=== PATIENT | male | born 1940 | race Caucasian/White ===

== ENCOUNTER 2019-11-22 10:34 | Day surgery (SDC) | payer MEDICARE ==
[2019-11-19 13:27] VITALS: BMI 31.1
[~2019-11-22 10:34] MED LIST: ALPRAZolam 0.25 MG TAB PO PRN; ALPRAZolam 0.5 MG TAB PO PRN; ASPIRIN 325 MG TAB PO ONE; ATORVASTATIN 80 MG TAB PO ONE; NITROGLYCERIN SL TABS 0.4 MG TAB SUBLINGUAL PRN; SODIUM CHLORIDE 0.9% 1,000 ML in EMPTY BAG 1 BAG IV ONE
[2019-11-22] MEDS ORDERED: LIDOCAINE 1% INJ 10MG/ML (20 ML MDV) ONE (11:19)
[2019-11-22 11:27] LABS: Calcium 9.3 mg/dL (8.4-10.2); Potassium 4.5 mmol/L (3.5-5.1)
[2019-11-22] MEDS ORDERED: fentaNYL (PF) 50 MCG/ML 2 ML AMP ONE (11:27)
[2019-11-22] MEDS ORDERED: MIDAZOLAM 2 MG/2 ML VIAL IVP ONE (11:41)
[2019-11-22] MEDS ORDERED: LIDOCAINE 1% INJ 10MG/ML (20 ML MDV) SQ ONE (11:41)
[2019-11-22] MEDS ORDERED: fentaNYL (PF) 50 MCG/ML 2 ML AMP IVP ONE (11:41)
[2019-11-22] MEDS ORDERED: IOPAMIDOL-370 125ML BTL INJ ONE (12:29)
[2019-11-22] MEDS ORDERED: RX INFO: IV CONTRAST WAS GIVEN 1 EACH MISC MISCELLANE PRN (12:31)
[2019-11-22] MEDS ORDERED: SODIUM CHLORIDE 0.9% 1,000 ML IV SCH (12:45)
[2019-11-22 13:11] VITALS: RESP 18
[2019-11-22 15:59] VITALS: BP 144/70; TEMP 97.9
[2019-11-22 16:50] VITALS: PULSE 51
--- NOTE | 2019-11-25 08:09 | P.CARDCATH ---
Date of Procedure: 11/22/19 Preoperative Diagnosis: This is a 79-year-old gentleman with history of ischemic heart disease with a previous bypass surgery done several years ago with the LEUNG graft to the LAD, vein graft to the diagonal and main come to the OM branch. Recently patient was complaining of exertional shortness of breath and had a nuclear stress test done in [place]. This was reported as showing anterolateral and inferolateral reversible ischemia and also fixated defects. Because of multiple defects and ongoing symptoms, patient was advised to have a cardiac catheterization. Patient preferred to come to [facility] for cardiac catheterization. Patient is fully aware of the risks and benefits of the procedure. Postoperative Diagnosis: Triple-vessel disease with a patent grafts to the LEUNG to the diagonal and also OM branch and significant lesion involving the right coronary artery at multiple sites Description of Procedure: HISTORY: This is a 79-year-old gentleman with history of previous bypass surgery and positive stress test and symptoms of shortness of breath, Being evaluated for progression of ischemic heart disease. CONSENT:I have discussed the risks, benefits and alternative therapies for the above-mentioned procedure and for both sedation/analgesia as well as necessary blood product administration, if indicated, as they pertain to this patient. The patient has indicated understanding and acceptance of the risks and procedures discussed. PROCEDURE: Patient was brought to the lab in a fasting state. Patient was given some IV sedation. The right groin is infiltrated with lidocaine and right femoral artery was entered using Seldinger technique. A 6-British catheter was left in place and selective coronary arteriography and selective injection of the LEUNG graft to the LAD, vein graft to the diagonal and also vein graft to the circumflex was performed. Patient tolerated the procedure well. Femoral angiogram was performed and Angio-Seal was applied for hemostasis. No immediate complications were noted and patient was transferred to [facility] in a stable condition Conscious Sedation: Versed 0.5mg Fentanyl 25 g Duration 25minutes HEMODYNAMICS: The aortic pressure is about 140/70. SELECTIVE CORONARY ARTERIOGRAPHY: LEFT MAIN: The left main coronary artery is relatively short but free of any occlusive disease THE LEFT ANTERIOR DESCENDING CORONARY ARTERY:. This is a moderate caliber vessel which is totally closed after first septal branch THE LEFT CIRCUMFLEX AND IS CORONARY ARTERY:. This is a good caliber vessel with total occlusion of the first OM branch. Diffuse disease involving the midportion with competent to flow noted to the distal branch from the bypass graft THE RIGHT CORONARY ARTERY: This is a good caliber vessel and dominant. This has multiple lesion involving the mid and distal portions with areas of 70% stenosis involving mid distal and also before bifurcation to PDA and PLV. The vessel is calcified. The PDA branch appears to be totally occluded. The RCA provides collaterals to the distal circumflex. THE LEUNG GRAFT TO THE LAD: This is a relatively moderate caliber vessel and patent throat its length and also to distal anastomosis. The LAD beyond the insertion appears to be small to moderate in size and free of occlusive disease. The vein graft to the DIAGONAL: This is patent at the proximal and distal anastomosis with mild disease in the body. The diagonal branch is free of occlusive disease. The vein graft to the OM branch: This is a good caliber vessel and free of occlusive disease and patent at the proximal and distal anastomosis. The distal circumflex appears to be free of occlusive disease LEFT VENTRICULOGRAPHY:. Not performed FINAL IMPRESSION: Multiple significant lesion in the RCA which is a calcified vessel. The [place] LAD is totally occluded and the first OM branch is totally occluded. The LEUNG graft to the LAD and vein graft to the diagonal and OM branch are patent PLAN: Stent placement of the RCA. Films reviewed by Dr. TIMMY Gregory. Patient may need atherectomy and this procedure is going be done at a later date as an outpatient PROGNOSIS:. Fair
== END 2019-11-22 17:57 ==
LOC: CATHCVL 10:34 → 1SOBS 12:48 → CATHCVL 17:57
PROVIDERS: ATTEND Internal Medicine Cardiovascular Disease
DX: I25.10 Atherosclerotic heart disease of native coronary artery without angina pectoris (principal); I25.810 Atherosclerosis of coronary artery bypass graft(s) without angina pectoris; I25.84 Coronary atherosclerosis due to calcified coronary lesion; I25.82 Chronic total occlusion of coronary artery; I48.0 Paroxysmal atrial fibrillation; I10 Essential (primary) hypertension; E78.5 Hyperlipidemia, unspecified; J44.9 Chronic obstructive pulmonary disease, unspecified; R09.89 Other specified symptoms and signs involving the circulatory and respiratory systems; Z82.49 Family history of ischemic heart disease and other diseases of the circulatory system; Z95.1 Presence of aortocoronary bypass graft; Z87.891 Personal history of nicotine dependence; Z79.01 Long term (current) use of anticoagulants; Z79.899 Other long term (current) drug therapy
CPT/HCPCS: 93459; 80048; C1769 ×3; C1760; C1894; J2250; J2001; J3010; Q9967; 93458

== ENCOUNTER → 2019-11-25 | Outpatient (CLI) | payer MEDICARE ==
[2019-11-25 11:16] LABS: HCT 51.3 % (39.0-53.0); HGB 16.7 gm/dL (13.0-17.5); MCH 30.4 pg (25.0-35.0); MCHC 32.6 g/dL (31.0-37.0); MCV 93.4 fL (80.0-100.0); Mean Platelet Volume 8.2; Platelet Count 197 k/uL (150-450); RBC 5.49 m/uL (4.30-5.90); WBC 8.4 k/uL (3.8-10.6)
== END | disposition home or self-care (01) ==
LOC: LABPAT 09:55
PROVIDERS: ATTEND Internal Medicine Interventional Cardiology
DX: Z01.818 Encounter for other preprocedural examination (principal); I48.0 Paroxysmal atrial fibrillation; R94.39 Abnormal result of other cardiovascular function study
CPT/HCPCS: 36415; 80051; 82565; 82947; 84520; 85027

== ENCOUNTER 2019-11-27 06:37 | Day surgery (SDC) | payer MEDICARE ==
[2019-11-26 08:42] VITALS: BMI 30.7
[2019-11-27] MEDS ORDERED: ALPRAZolam 0.25 MG TAB PO PRN (06:42)
[2019-11-27] MEDS ORDERED: ALPRAZolam 0.5 MG TAB PO PRN (06:42)
[2019-11-27] MEDS ORDERED: ASPIRIN 325 MG TAB PO STA (06:42)
[2019-11-27] MEDS ORDERED: ATORVASTATIN 80 MG TAB PO STA (06:42)
[2019-11-27] MEDS ORDERED: NITROGLYCERIN SL TABS 0.4 MG TAB SUBLINGUAL PRN (06:42)
[2019-11-27] MEDS ORDERED: SODIUM CHLORIDE 0.9% 1,000 ML in EMPTY BAG 1 BAG IV ONE (06:42)
[2019-11-27] MEDS ORDERED: SODIUM CHLORIDE 0.9% 1,000 ML IV ONE (07:08)
[2019-11-27] MEDS ORDERED: LIDOCAINE 1% INJ 10MG/ML (20 ML MDV) ONE ×2 (07:21→07:34)
[2019-11-27] MEDS ORDERED: HEPARIN SODIUM 1,000 UN/ML (10ML VL) ONE (07:34)
[2019-11-27] MEDS ORDERED: MIDAZOLAM 2 MG/2 ML VIAL IV ONE (07:44)
[2019-11-27] MEDS ORDERED: LIDOCAINE 1% INJ 10MG/ML (20 ML MDV) SQ ONE (07:44)
[2019-11-27] MEDS ORDERED: HYDROmorphone 1 MG/ML 1 ML SYRINGE ONE (07:51)
[2019-11-27] MEDS: HYDROmorphone 1 MG/ML 1 ML SYRINGE IVP ONE ×2 (07:53→09:06)
[2019-11-27] MEDS ORDERED: BIVALIRUDIN BOLUS 250 MG/50 ML IV ONE (08:00)
[2019-11-27] MEDS ORDERED: BIVALIRUDIN 250 MG in SODIUM CHLORIDE 0.9% 50 ML IV ONE ×2 (08:00→08:52)
[2019-11-27] MEDS ORDERED: IOPAMIDOL-370 100ML BTL INJ ONE ×2 (08:52→09:01)
[2019-11-27] MEDS ORDERED: NITROGLYCERIN 1000MCG/10ML SYRINGE INTRACORON ONE (08:58)
[2019-11-27] MEDS ORDERED: TICAGRELOR 90 MG TAB ONE (09:02)
[2019-11-27] MEDS ORDERED: TICAGRELOR 90 MG TAB PO ONE (09:06)
[2019-11-27] MEDS ORDERED: RX INFO: IV CONTRAST WAS GIVEN 1 EACH MISC MISCELLANE PRN (09:18)
[2019-11-27] MEDS ORDERED: MAG HYDROX/AL HYDROX/SIMETH 30 ML CUP PO PRN (09:18)
[2019-11-27] MEDS ORDERED: ATROPINE SULFATE 0.1 MG/ML 10ML SYRINGE IV PRN (09:18)
--- NOTE | 2019-11-27 13:01 | PTCA ---
PERCUTANEOUSTRANS CORORONARY ANGIOGRAPHY DATE OF SERVICE: 11/27/2019 PROCEDURE: 1. Transvenous temporary pacemaker from right femoral venous approach. 2. Orbital atherectomy of proximal and mid right coronary artery. 3. PTCA and stenting of proximal mid and distal right coronary artery with drug- eluting stents. PERFORMED BY: Dr. Alice Gregory. Moderate conscious sedation time was 88 minutes. The patient was administered Versed and Dilaudid. Oxygen saturation, hemodynamics and EKG were monitored closely. CLINICAL INFORMATION: Mr. Dinesh Campbell is an 79-year-old gentleman with a history of hypertension, hyperlipidemia, CAD who underwent aortocoronary bypass surgery in 1995 at [facility]. He had a LEUNG to LAD, vein graft to the diagonal and a vein graft to the obtuse marginal branch of circumflex. Because of significant symptoms of angina and a positive stress test, Dr. Nice evaluated him and performed a cardiac cath last week, which revealed that the vein graft and LEUNG were patent but the distal circumflex was totally occluded and the RCA that was never grafted had multiple areas of disease with heavy calcification and stenosis of about 80% to 90%. The right coronary artery was a dominant vessel, also provided collaterals to the distal circumflex. He was advised intervention after due discussion regarding risks, benefits, options and brought in for the procedure electively. PROCEDURE NOTE: Under local anesthesia and strict aseptic precautions, a 6-Spanish introducer was placed in the right femoral artery and right femoral vein. Under fluoroscopic guidance, a transvenous balloon tipped pacemaker was positioned in the right ventricular apex and the pacemaker thresholds were checked. Threshold was 0.8 mV. Pacemaker was set at a backup rate of 40 with a mA of 5.0. I then used a standard right Sarah catheter to cannulate the right coronary artery and a run-through wire was used to cross the lesion. Wire was kept in the distal aspect of the PLV branch. Patient's PDA was totally occluded and appeared to be a chronic occlusion. I then used an orbital atherectomy CSI catheter, with this I performed 2 passes in the proximal lesion and 3 passes in the mid lesion. The distal lesion just at the bifurcation did not have any atherectomy performed. Following this, I took an angiogram and noted that there was modest improvement. I then went ahead with a noncompliant 12 mm long NC Trek balloon with this I pre-dilated the mid and proximal lesions. I then deployed a 23 mm long 3.5 caliber Xience stent in the mid RCA lesion which was a long lesion at extreme tortuosity and calcification. Excellent angiographic result was achieved. I then deployed a 2.5, 12 mm Xience stent in the distal RCA into the PLV branch. Excellent angiographic result was achieved. Patient had mild chest discomfort. No significant EKG changes. The third stent was an 8 mm long 3.5 caliber Xience stent deployed in the proximal RCA lesion. Excellent angiographic result without complication was achieved. Patient received Angiomax bolus and infusion and he also received Brilinta 180 mg orally. The temporary pacemaker was taken out under fluoroscopic guidance. This was not used. I then took out the arterial sheath and used a Perclose device to secure hemostasis. The venous sheath was also pulled and manual compression used. Mild oozing was noted. A FemoStop was applied and he was sent to the room in stable condition. Excellent angiographic result without complication was achieved. Results were discussed with the patient and family. MMODL / IJN: [id number] /
[2019-11-27] MEDS ORDERED: amLODIPine 5 MG TAB PO STA (15:33)
[2019-11-27] MEDS: SODIUM CHLORIDE 0.9% 1,000 ML IV SCH ×2 (15:34→20:39)
[2019-11-27] MEDS ORDERED: MORPHINE SULFATE 2 MG/ML SYRINGE IVP STA (19:11)
[2019-11-27] MEDS ORDERED: FUROSEMIDE 10 MG/ML 2 ML VIAL IV STA (19:11)
[2019-11-27] MEDS ORDERED: LISINOPRIL 10 MG TAB PO SCH (21:00)
[2019-11-27] MEDS ORDERED: METOPROLOL SUCCINATE (ER) 25 MG TAB.ER.24H PO SCH (21:00)
[2019-11-28 06:53] LABS: Basophils % (A) 0 %; Eosinophils # (A) 0.4 k/uL (0-0.7); Eosinophils % (A) 4 %; HCT 46.9 % (39.0-53.0); HGB 15.5 gm/dL (13.0-17.5); Lymphocytes # (A) 2.2 k/uL (1.0-4.8); Lymphocytes % (A) 24 %; MCH 30.3 pg (25.0-35.0); MCHC 33.1 g/dL (31.0-37.0); MCV 91.4 fL (80.0-100.0); Mean Platelet Volume 7.8; Monocytes # (A) 0.7 k/uL (0-1.0); Monocytes % (A) 7 %; Neutrophils # (A) 5.6 k/uL (1.3-7.7); Neutrophils % (A) 62 %; Platelet Count 187 k/uL (150-450); RBC 5.13 m/uL (4.30-5.90); RDW 12.8 % (11.5-15.5)
[2019-11-28 07:05] LABS: Magnesium 2.1 mg/dL (1.6-2.3); Potassium 4.2 mmol/L (3.5-5.1)
--- NOTE | 2019-11-28 08:29 | DS ---
DISCHARGE SUMMARY DATE OF ADMISSION: 11/27/2019 DATE OF DISCHARGE: 11/28/2019. DIAGNOSES: 1. Unstable angina with history of prior aortocoronary bypass surgery. 2. Hypertension. 3. Hypercholesterolemia. PROCEDURES PERFORMED: Temporary transvenous pacemaker, orbital atherectomy and stenting of dominant calcified RCA with 3 drug-eluting stents. Mr. Campbell was brought in for elective PCI. Procedure was performed uneventfully with an excellent result. Postprocedure, he had an episode of shortness of breath and a short run of nonsustained ventricular tachycardia, asymptomatic. Labs are unremarkable. EKG is unremarkable. He is asymptomatic ambulating. Blood pressure is 110/70, pulse rate is about 58 per minute. No JVD. S1, S2 heard normally. Short systolic murmur noted. Lungs are clear. Abdomen is soft. Lower extremities reveal normal pulses. Right groin is clean and dry with a good pulse. Laboratory data and EKG reviewed. I explained to the patient the importance of compliance with dual antiplatelet therapy and his other medications. Prescriptions were given. Appointment will be with Dr. Nice on December 02 at 10:15 a.m. Discharge instructions regarding activity, diet and medications were given. The patient will be discharged today. MMODL / IJN: [id number] /
[2019-11-28] MEDS ORDERED: ATORVASTATIN 40 MG TAB PO SCH (09:00)
[2019-11-28] MEDS ORDERED: TICAGRELOR 90 MG TAB PO SCH (09:00)
[2019-11-28] MEDS ORDERED: ASPIRIN 81 MG PO SCH (09:00)
[2019-11-28 09:55] VITALS: BP 129/60; PULSE 52; RESP 16; TEMP 97.6
== END 2019-11-28 12:25 | disposition home or self-care (01) ==
LOC: CATHCVL 06:37 → 3SCARD 09:05 → CATHCVL 11-28 12:25
PROVIDERS: ATTEND Internal Medicine Interventional Cardiology
DX: I25.110 Atherosclerotic heart disease of native coronary artery with unstable angina pectoris (principal); I48.0 Paroxysmal atrial fibrillation; I10 Essential (primary) hypertension; E78.00 Pure hypercholesterolemia, unspecified; E78.5 Hyperlipidemia, unspecified; F17.210 Nicotine dependence, cigarettes, uncomplicated; Z95.1 Presence of aortocoronary bypass graft; Z79.01 Long term (current) use of anticoagulants; Z79.899 Other long term (current) drug therapy
CPT/HCPCS: 80048; 83735; 85025; C9602; C1769 ×5; C1887; C1725; C1894; C1714; C1760; C1874; J2250; J1940; J2001; J2270; J1170; J0583; Q9967

== ENCOUNTER 2023-12-18 13:05 | Emergency (ER) | payer MEDICARE ==
--- NOTE | 2023-12-18 13:31 | ED ---
Dizziness HPI - General Source: patient, family, RN notes reviewed Mode of arrival: wheelchair Limitations: no limitations <Ligia Hansen - Last Filed: 12/18/23 13:30> <Tarik Ramyond - Last Filed: 12/18/23 18:05> - General Chief Complaint: Dizziness Stated Complaint: dizziness Time Seen by Provider: 12/18/23 13:31 - History of Present Illness Initial Comments: Quick note: Patient is an 83-year-old male presented to the ER with a chief complaint of dizziness x 3 days. He also states he feels pain in bilateral eyes. He states his left eye does occasionally go blurry. Denies any other complaints. (Ligia Hansen) 83-year-old male presenting with dizziness which began on Monday which was 3 days prior. He states this was a room spinning sensation and was more significant at the time of onset. He states his symptoms have somewhat improved. No focal numbness or weakness. No headache. No chest pain. No abdominal pain. (Tarik Raymond) - Related Data Home Medications Medication Instructions Recorded Confirmed Atorvastatin Calcium [Lipitor] 40 mg PO DAILY 11/19/19 11/27/19 Metoprolol Succinate (ER) [Toprol 50 mg PO DAILY 11/19/19 11/27/19 XL] lisinopriL [Zestril] 30 mg PO HS 11/19/19 11/27/19 Aspirin 81 mg PO DAILY 11/27/19 11/27/19 Previous Rx's Medication Instructions Recorded Nitroglycerin Sl Tabs [Nitrostat] 0.4 mg SUBLINGUAL Q5M PRN #25 tab 11/27/19 Ticagrelor [Brilinta] 90 mg PO BID #30 tab 11/27/19 Meclizine [Antivert] 25 mg PO TID PRN #15 tab 12/18/23 Allergies Allergy/AdvReac Type Severity Reaction Status Date / Time No Known Allergies Allergy Verified 12/18/23 17:51 Review of Systems ROS Other: All systems not noted in ROS Statement are negative. <Ligia Hansen - Last Filed: 12/18/23 13:30> ROS Other: All systems not noted in ROS Statement are negative. <Tarik Raymond - Last Filed: 04/01/24 18:05> ROS Statement: Those systems with pertinent positive or pertinent negative responses have been documented in the HPI. Past Medical History Past Medical History: Atrial Fibrillation, Hyperlipidemia, Hypertension, Myocardial Infarction (VT) Additional Past Medical History / Comment(s): See Dr Nice's H&P Last Myocardial Infarction Date:: 1995 History of Any Multi-Drug Resistant Organisms: None Reported Past Surgical History: Back Surgery, Coronary Bypass/CABG, Heart Catheterization, Heart Catheterization With Stent Additional Past Surgical History / Comment(s): CABG 3 vessels 1995,beatriz cataracts Past Anesthesia/Blood Transfusion Reactions: No Reported Reaction Additional Past Anesthesia/Blood Transfusion Reaction / Comment(s): no hx blood transfusion Date of Last Stent Placement:: 11/27/2019 Past Psychological History: No Psychological Hx Reported Past Alcohol Use History: None Reported Past Drug Use History: None Reported - Past Family History Mother Family Medical History: No Reported History <Ligia Hansen - Last Filed: 12/18/23 13:30> General Exam Limitations: no limitations <Ligia Hansen - Last Filed: 12/18/23 13:30> General appearance: alert, in no apparent distress Head exam: Present: atraumatic, normocephalic Eye exam: Present: normal appearance, PERRL ENT exam: Present: normal exam, mucous membranes moist Neck exam: Present: normal inspection. Absent: tenderness, meningismus Respiratory exam: Present: normal lung sounds bilaterally. Absent: respiratory distress, wheezes Cardiovascular Exam: Present: normal rhythm, bradycardia GI/Abdominal exam: Present: soft. Absent: distended, tenderness, guarding Extremities exam: Present: normal inspection, normal capillary refill Neurological exam: Present: alert, oriented X3, CN II-XII intact, other (No ataxia, normal [id number]). Absent: motor sensory deficit Psychiatric exam: Present: normal affect, normal mood Skin exam: Present: warm, dry, intact <Tarik Raymond - Last Filed: 12/18/23 18:05> - General Exam Comments Initial Comments: Visual Physical Exam Vital signs reviewed General: Well-appearing, nontoxic, no acute distress. Head: Normocephalic, atraumatic Eyes: PERRLA, EOMI ENT: Airway patent Chest: Nonlabored breathing Skin: No visual rash, normal skin tone Neuro: Alert and oriented 3 Musculoskeletal: No gross abnormalities (Ligia Hansen) Course <Tarik Raymond - Last Filed: 12/18/23 18:05> Vital Signs 12/18/23 12/18/23 12/18/23 13:09 15:00 17:22 Temperature 97.8 F 997.9 F H Pulse Rate 57 L 51 L 59 L Respiratory 18 20 18 Rate Blood Pressure 155/77 186/73 186/85 O2 Sat by Pulse 97 98 98 Oximetry 12/18/23 17:43 Temperature 98.1 F Pulse Rate 62 Respiratory 62 H Rate Blood Pressure 136/89 O2 Sat by Pulse 99 Oximetry - Reevaluation(s) Reevaluation #1: 12/18/23 18:04 Patient reevaluated, sitting up, symptoms significantly improved. Eager for discharge. (Tarik Raymond) Medical Decision Making <Ligia Hansen - Last Filed: 12/18/23 13:30> - Lab Data Result diagrams: 12/18/23 15:00 12/18/23 15:00 <Tarik Raymond - Last Filed: 12/18/23 18:05> - Medical Decision Making I performed the quick note portion of this chart. Electronically signed by Ligia Hansen PA-C (Ligia Hansen) Was pt. sent in by a medical professional or institution ([facility]ERRIE Zepeda, [employer], urgent care, hospital, or halfway...) When possible be specific @ -No Did you speak to anyone other than the patient for history (EMS, parent, family, police, friend...)? What history was obtained from this source @ -No Did you review nursing and triage notes (agree or disagree)? Why? @ -I reviewed and agree with nursing and triage notes Were old charts reviewed (outside hosp., previous admission, EMS record, old EKG, old radiological studies, urgent care reports/EKG's, halfway records)? Report findings @ -No old charts were reviewed Differential Diagnosis (chest pain, altered mental status, abdominal pain women, abdominal pain men, vaginal bleeding, weakness, fever, dyspnea, syncope, headache, dizziness, GI bleed, back pain, seizure, CVA, palpatations, mental health, musculoskeletal)? @Differential Dizziness: Benign paroxysmal positional Vertigo, Menieres disease, otitis media, acoustic neuroma, vertebrobasilar insufficiency, cerebellar stroke, encephalitis, hypovol emic, arrhythmia, coronary artery syndrome, anemia, this is not meant to be an all-inclusive list EKG interpreted by me (3pts min.). @ -Sinus bradycardia rate of 50, ST segment depression T wave inversion in the lateral precordium, no ST segment elevation, GA interval 199, QRS duration 104, QTc 404 X-rays interpreted by me (1pt min.). @ -None done CT interpreted by me (1pt min.). @ -CT brain negative for intracranial hemorrhage or mass effect. U/S interpreted by me (1pt. min.). @ -None done What testing was considered but not performed or refused? (CT, X-rays, U/S, labs)? Why? @ -None What meds were considered but not given or refused? Why? @ -None Did you discuss the management of the patient with other professionals (professionals i.e. , PA, [employer], lab, RT, psych nurse, sr. social media & mobile manager, biology tutor, teacher, credit officer, case management assistant)? Give summary @ -No Was smoking cessation discussed for >3mins.? @ -No Was critical care preformed (if so, how long)? @ -No Were there social determinants of health that impacted care today? How? (Homelessness, low income, unemployed, alcoholism, drug addiction, transportation, low edu. Level, literacy, decrease access to med. care, usp, rehab)? @ -No Was there de-escalation of care discussed even if they declined (Discuss DNR or withdrawal of care, Hospice)? DNR status @ -No What co-morbidities impacted this encounter? (DM, HTN, Smoking, COPD, CAD, Cancer, CVA, ARF, Chemo, Hep., AIDS, mental health diagnosis, sleep apnea, morbid obesity)? @ -None Was patient admitted / discharged? Hospital course, mention meds given and route, prescriptions, significant lab abnormalities, going to OR and other pertinent info. @83-year-old male presents for evaluation of dizziness which she states did improve but has been persistent for the past 3 days. Patient is on metoprolol and Eliquis. He has no focal neurological findings. No significant headache. No ataxia. He is bradycardic with otherwise stable vitals. He has normal CBC, normal CMP, negative urinalysis. Patient given IV fluids and meclizine. His symptoms are tolerable and he states that he feels well enough to go home. He will take [id number] meclizine for symptoms he is given strict return parameters including headache, focal numbness or weakness, gait instability. Undiagnosed new problem with uncertain prognosis? @ -No Drug Therapy requiring intensive monitoring for toxicity (Heparin, Nitro, Insulin, Cardizem)? @ -No Were any procedures done? @ -No Diagnosis/symptom? @ -[Vertigo Acute, or Chronic, or Acute on Chronic? @ -Acute Uncomplicated (without systemic symptoms) or Complicated (systemic symptoms)? @ -Default Side effects of treatment? @ -No Exacerbation, Progression, or Severe Exacerbation? @ -No Poses a threat to life or bodily function? How? (Chest pain, USA, VT, pneumonia, PE, COPD, DKA, ARF, appy, cholecystitis, CVA, Diverticulitis, Homicidal, Suicidal, threat to staff... and all critical care pts) @ -Low risk at this time (Tarik Raymond) - Lab Data Lab Results 12/18/23 12/18/23 12/18/23 Range/Units 15:00 15:00 15:00 WBC 9.4 (3.8-10.6) k/uL RBC 5.53 (4.30-5.90) m/uL Hgb 17.4 (13.0-17.5) gm/dL Hct 53.3 H (39.0-53.0) % MCV 96.5 (80.0-100.0) fL MCH 31.5 (25.0-35.0) pg MCHC 32.6 (31.0-37.0) g/dL RDW 13.3 (11.5-15.5) % Plt Count 190 (150-450) k/uL MPV 8.2 Neutrophils % 73 % Lymphocytes % 16 % Monocytes % 6 % Eosinophils % 3 % Basophils % 1 % Neutrophils # 6.9 (1.3-7.7) k/uL Lymphocytes # 1.5 (1.0-4.8) k/uL Monocytes # 0.6 (0-1.0) k/uL Eosinophils # 0.3 (0-0.7) k/uL Basophils # 0.1 (0-0.2) k/uL PT 12.5 (10.0-12.5) sec INR 1.2 H (<1.2) APTT 28.8 (22.0-30.0) sec Sodium 140 (137-145) mmol/L Potassium 4.2 (3.5-5.1) mmol/L Chloride 107 (98-107) mmol/L Carbon Dioxide 25 (22-30) mmol/L Anion Gap 8 mmol/L BUN 18 (9-20) mg/dL Creatinine 1.09 (0.66-1.25) mg/dL Est GFR (CKD-EPI)AfAm 71 (>60 ml/min/1.73 sqM) Est GFR (CKD-EPI)NonAf 62 (>60 ml/min/1.73 sqM) Glucose 100 H (74-99) mg/dL Plasma Lactic Acid Ede (0.7-2.0) mmol/L Calcium 8.7 (8.4-10.2) mg/dL Total Bilirubin 0.8 (0.2-1.3) mg/dL AST 26 (17-59) U/L ALT 19 (4-49) U/L Alkaline Phosphatase 85 (38-126) U/L Troponin I (0.000-0.034) ng/mL Total Protein 6.4 (6.3-8.2) g/dL Albumin 3.8 (3.5-5.0) g/dL Urine Color Urine Appearance (Clear) Urine pH (5.0-8.0) Ur Specific [place] (1.001-1.035) Urine Protein (Negative) Urine Glucose (UA) (Negative) Urine Ketones (Negative) Urine Blood (Negative) Urine Nitrite (Negative) Urine Bilirubin (Negative) Urine Urobilinogen (<2.0) mg/dL Ur Leukocyte Esterase (Negative) Influenza Type A (PCR) (Not Detectd) Influenza Type B (PCR) (Not Detectd) RSV (PCR) (Not Detectd) SARS-CoV-2 (PCR) (Not Detectd) 12/18/23 12/18/23 12/18/23 Range/Units 15:00 15:00 15:00 WBC (3.8-10.6) k/uL RBC (4.30-5.90) m/uL Hgb (13.0-17.5) gm/dL Hct (39.0-53.0) % MCV (80.0-100.0) fL MCH (25.0-35.0) pg MCHC (31.0-37.0) g/dL RDW (11.5-15.5) % Plt Count (150-450) k/uL MPV Neutrophils % % Lymphocytes % % Monocytes % % Eosinophils % % Basophils % % Neutrophils # (1.3-7.7) k/uL Lymphocytes # (1.0-4.8) k/uL Monocytes # (0-1.0) k/uL Eosinophils # (0-0.7) k/uL Basophils # (0-0.2) k/uL PT (10.0-12.5) sec INR (<1.2) APTT (22.0-30.0) sec Sodium (137-145) mmol/L Potassium (3.5-5.1) mmol/L Chloride (98-107) mmol/L Carbon Dioxide (22-30) mmol/L Anion Gap mmol/L BUN (9-20) mg/dL Creatinine (0.66-1.25) mg/dL Est GFR (CKD-EPI)AfAm (>60 ml/min/1.73 sqM) Est GFR (CKD-EPI)NonAf (>60 ml/min/1.73 sqM) Glucose (74-99) mg/dL Plasma Lactic Acid Ede 1.1 (0.7-2.0) mmol/L Calcium (8.4-10.2) mg/dL Total Bilirubin (0.2-1.3) mg/dL AST (17-59) U/L ALT (4-49) U/L Alkaline Phosphatase (38-126) U/L Troponin I <0.012 (0.000-0.034) ng/mL Total Protein (6.3-8.2) g/dL Albumin (3.5-5.0) g/dL Urine Color Urine Appearance (Clear) Urine pH (5.0-8.0) Ur Specific [place] (1.001-1.035) Urine Protein (Negative) Urine Glucose (UA) (Negative) Urine Ketones (Negative) Urine Blood (Negative) Urine Nitrite (Negative) Urine Bilirubin (Negative) Urine Urobilinogen (<2.0) mg/dL Ur Leukocyte Esterase (Negative) Influenza Type A (PCR) Not Detected (Not Detectd) Influenza Type B (PCR) Not Detected (Not Detectd) RSV (PCR) Not Detected (Not Detectd) SARS-CoV-2 (PCR) Not Detected (Not Detectd) 12/18/23 Range/Units 16:00 WBC (3.8-10.6) k/uL RBC (4.30-5.90) m/uL Hgb (13.0-17.5) gm/dL Hct (39.0-53.0) % MCV (80.0-100.0) fL MCH (25.0-35.0) pg MCHC (31.0-37.0) g/dL RDW (11.5-15.5) % Plt Count (150-450) k/uL MPV Neutrophils % % Lymphocytes % % Monocytes % % Eosinophils % % Basophils % % Neutrophils # (1.3-7.7) k/uL Lymphocytes # (1.0-4.8) k/uL Monocytes # (0-1.0) k/uL Eosinophils # (0-0.7) k/uL Basophils # (0-0.2) k/uL PT (10.0-12.5) sec INR (<1.2) APTT (22.0-30.0) sec Sodium (137-145) mmol/L Potassium (3.5-5.1) mmol/L Chloride (98-107) mmol/L Carbon Dioxide (22-30) mmol/L Anion Gap mmol/L BUN (9-20) mg/dL Creatinine (0.66-1.25) mg/dL Est GFR (CKD-EPI)AfAm (>60 ml/min/1.73 sqM) Est GFR (CKD-EPI)NonAf (>60 ml/min/1.73 sqM) Glucose (74-99) mg/dL Plasma Lactic Acid Ede (0.7-2.0) mmol/L Calcium (8.4-10.2) mg/dL Total Bilirubin (0.2-1.3) mg/dL AST (17-59) U/L ALT (4-49) U/L Alkaline Phosphatase (38-126) U/L Troponin I (0.000-0.034) ng/mL Total Protein (6.3-8.2) g/dL Albumin (3.5-5.0) g/dL Urine Color Yellow Urine Appearance Clear (Clear) Urine pH 5.5 (5.0-8.0) Ur Specific [place] 1.017 (1.001-1.035) Urine Protein Trace H (Negative) Urine Glucose (UA) Negative (Negative) Urine Ketones Negative (Negative) Urine Blood Negative (Negative) Urine Nitrite Negative (Negative) Urine Bilirubin Negative (Negative) Urine Urobilinogen <2.0 (<2.0) mg/dL Ur Leukocyte Esterase Negative (Negative) Influenza Type A (PCR) (Not Detectd) Influenza Type B (PCR) (Not Detectd) RSV (PCR) (Not Detectd) SARS-CoV-2 (PCR) (Not Detectd) Disposition <Ligia Hansen - Last Filed: 12/18/23 13:30> Is patient prescribed a controlled substance at d/c from ED?: No Time of Disposition: 17:16 <Tarik Raymond - Last Filed: 12/18/23 18:05> Clinical Impression: Vertigo Disposition: HOME SELF-CARE Condition: Fair Instructions (If sedation given, give patient instructions): Dizziness (ED) Prescriptions: Meclizine [Antivert] 25 mg PO TID PRN #15 tab PRN Reason: Vertigo Referrals: Toi Miranda MD [Primary Care Provider] - 1-2 days
--- NOTE | 2023-12-18 14:36 | CT ---
EXAMINATION TYPE: CT brain wo con DATE OF EXAM: 12/18/2023 COMPARISON: None HISTORY: DIZZINESS X3 DAYS CT DLP: 1093.[address] of the brain was performed. The ventricles, basal cisterns and sulci overlying the cerebral convexities demonstrate mild enlargem ent. There is no evidence for intracranial hemorrhage or sulcal effacement. There is decreased attenuation about the periventricular white matter and deep white matter of both c erebral hemispheres, compatible with chronic small vessel ischemia. Differential diagnosis does inclu de demyelination. No mass effects are seen.No midline shift. Osseous calvarium is intact. The left maxillary and sphenoid chronic sinusitis. If symptoms persist consider MRI. IMPRESSION: 1. Age related atrophic and chronic small vessel ischemic change without acute intracranial process s een at this time.
[2023-12-18 15:11] LABS: Basophils # (A) 0.1 k/uL (0-0.2); Basophils % (A) 1 %; Eosinophils # (A) 0.3 k/uL (0-0.7); Eosinophils % (A) 3 %; HCT 53.3 % (39.0-53.0); HGB 17.4 gm/dL (13.0-17.5); Lymphocytes # (A) 1.5 k/uL (1.0-4.8); Lymphocytes % (A) 16 %; MCH 31.5 pg (25.0-35.0); MCHC 32.6 g/dL (31.0-37.0); MCV 96.5 fL (80.0-100.0); Mean Platelet Volume 8.2; Monocytes # (A) 0.6 k/uL (0-1.0); Monocytes % (A) 6 %; Neutrophils # (A) 6.9 k/uL (1.3-7.7); Neutrophils % (A) 73 %; Platelet Count 190 k/uL (150-450); RBC 5.53 m/uL (4.30-5.90); RDW 13.3 % (11.5-15.5); WBC 9.4 k/uL (3.8-10.6)
[2023-12-18 15:23] LABS: INR 1.2 (<1.2); Partial Thromboplastin Time 28.8 sec (22.0-30.0); Prothrombin Time 12.5 sec (10.0-12.5)
[2023-12-18 15:25] LABS: ALT 19 U/L (4-49); AST 26 U/L (17-59); African American GFR (CKD) 71 (>60 ml/min/1.73 sqM); Albumin 3.8 g/dL (3.5-5.0); Alkaline Phosphatase 85 U/L (38-126); Anion Gap 8 mmol/L; Blood Urea Nitrogen 18 mg/dL (9-20); Calcium 8.7 mg/dL (8.4-10.2); Carbon Dioxide 25 mmol/L (22-30); Chloride 107 mmol/L (98-107); Glucose 100 mg/dL (74-99); Non-African American GFR(CKD) 62 (>60 ml/min/1.73 sqM); Potassium 4.2 mmol/L (3.5-5.1); Sodium 140 mmol/L (137-145); Total Bilirubin 0.8 mg/dL (0.2-1.3); Total Protein 6.4 g/dL (6.3-8.2)
[2023-12-18 16:24] LABS: Appearance,Urine Clear (Clear); Bilirubin,Urine Negative (Negative); Blood,Urine Negative (Negative); Color,Urine Yellow; Glucose,Urine (UA) Negative (Negative); Ketones,Urine Negative (Negative); Leukocyte Esterase,Urine Negative (Negative); Nitrite,Urine Negative (Negative); PH, Urine 5.5 (5.0-8.0); Protein,Urine Trace (Negative); Specific Gravity,Urine 1.017 (1.001-1.035); Urobilinogen,Urine <2.0 mg/dL (<2.0)
[2023-12-18] MEDS: MECLIZINE 12.5 MG TAB PO STA (17:15)
[2023-12-18] MEDS: SODIUM CHLORIDE 0.9% 500 ML 500 ML IV ONE (17:16)
[2023-12-18 17:47] VITALS: RESP 18
[2023-12-18 19:08] VITALS: BP 173/76; PULSE 52; TEMP 97.9
== END 2023-12-18 18:52 | disposition home or self-care (01) ==
LOC: EC 13:05
DX: R42 Dizziness and giddiness (principal); Z11.52 Encounter for screening for COVID-19
CPT/HCPCS: 36415; 70450; 80053; 81003; 83605; 84484; 85025; 85610; 85730; 87636; 93005; 99284

== ENCOUNTER 2024-06-24 15:20 | Observation (INO) | payer MEDICARE ==
[2024-06-24 15:24] VITALS: RESP 18; TEMP 98
--- NOTE | 2024-06-24 15:48 | ED ---
General Adult HPI - General Chief complaint: Chest Pain Stated complaint: Chest pain Time Seen by Provider: 06/24/24 15:29 Source: patient, RN notes reviewed Mode of arrival: wheelchair Limitations: no limitations - History of Present Illness Initial comments: Patient is an 84-year-old male present to the emergency department with concerns with chest discomfort. Onset of symptoms was yesterday. Patient states discomfort was severe, more right-sided. Symptoms resolved with a single nitroglycerin. Patient has felt short of breath since that time, especially with exertion. Patient was a little bit sweaty yesterday with the episode. Patient does have cardiac history however symptoms were not similar to this - Related Data Home Medications Medication Instructions Recorded Confirmed Atorvastatin Calcium [Lipitor] 40 mg PO HS 11/19/19 06/24/24 Metoprolol Succinate (ER) [Toprol 25 mg PO BID 11/19/19 06/24/24 XL] Apixaban [Eliquis] 5 mg PO BID 06/24/24 06/24/24 lisinopriL [Zestril] 20 mg PO DAILY 06/24/24 06/24/24 Previous Rx's Medication Instructions Recorded Nitroglycerin Sl Tabs [Nitrostat] 0.4 mg SUBLINGUAL Q5M PRN #25 tab 11/27/19 Allergies Allergy/AdvReac Type Severity Reaction Status Date / Time No Known Allergies Allergy Verified 06/24/24 16:02 Review of Systems ROS Statement: Those systems with pertinent positive or pertinent negative responses have been documented in the HPI. ROS Other: All systems not noted in ROS Statement are negative. Constitutional: Denies: fever Eyes: Denies: eye pain ENT: Denies: ear pain Respiratory: Reports: as per HPI, dyspnea. Denies: cough Cardiovascular: Reports: as per HPI, chest pain, dyspnea on exertion Gastrointestinal: Reports: abdominal pain Musculoskeletal: Denies: back pain Neurological: Denies: weakness Past Medical History Past Medical History: Atrial Fibrillation, Hyperlipidemia, Hypertension, Myocardial Infarction ([place]) Additional Past Medical History / Comment(s): See Dr Nice's H&P Last Myocardial Infarction Date:: 1995 History of Any Multi-Drug Resistant Organisms: None Reported Past Surgical History: Back Surgery, Coronary Bypass/CABG, Heart Catheterization, Heart Catheterization With Stent Additional Past Surgical History / Comment(s): CABG 3 vessels 1995,beatriz cataracts Past Anesthesia/Blood Transfusion Reactions: No Reported Reaction Additional Past Anesthesia/Blood Transfusion Reaction / Comment(s): no hx blood transfusion Date of Last Stent Placement:: 11/27/2019 Past Psychological History: No Psychological Hx Reported Past Alcohol Use History: None Reported Past Drug Use History: None Reported - Past Family History Mother Family Medical History: No Reported History General Exam Limitations: no limitations General appearance: alert, in no apparent distress Head exam: Present: normocephalic Eye exam: Present: normal appearance Neck exam: Present: normal inspection Respiratory exam: Present: normal lung sounds bilaterally Cardiovascular Exam: Present: regular rate, normal rhythm Expanded Peripheral pulses: 2+: Radial (R), Radial (L), Posterior Tibialis (R), Posterior Tibialis (L) GI/Abdominal exam: Present: soft. Absent: tenderness Extremities exam: Present: normal inspection. Absent: pedal edema, calf tende rness Neurological exam: Present: alert Psychiatric exam: Present: normal affect, normal mood Skin exam: Present: normal color Course Vital Signs 06/24/24 06/24/24 06/24/24 15:21 16:26 18:05 Temperature 98 F Pulse Rate 67 62 57 L Respiratory 18 18 18 Rate Blood Pressure 182/90 148/72 149/81 O2 Sat by Pulse 98 95 96 Oximetry EKG Findings - EKG Results: EKG: interpreted by ERMD ( /l axis. Supraventricular premature complexes. anterior Q waves.), sinus rhythm, normal ST/T Medical Decision Making - Medical Decision Making Was pt. sent in by a medical professional or institution (, PA, SHIFT NURSE MANAGER, urgent care, hospital, or penitentiary...) When possible be specific @ -No Did you speak to anyone other than the patient for history (EMS, parent, family, police, friend...)? What history was obtained from this source @ -Son is present helps provide history including patient's symptoms and did encourage patient coming to the hospital today Did you review nursing and triage notes (agree or disagree)? Why? @ -I reviewed and agree with nursing and triage notes Were old charts reviewed (outside hosp., previous admission, EMS record, old EKG, old radiological studies, urgent care reports/EKG's, penitentiary records)? Report findings @ - Differential Diagnosis (chest pain, altered mental status, abdominal pain women, abdominal pain men, vaginal bleeding, weakness, fever, dyspnea, syncope, headache, dizziness, GI bleed, back pain, seizure, CVA, palpatations, mental health, musculoskeletal)? @ -Differential Chest Pain: Stable Angina, Unstable Angina, STEMI, NSTEMI Aortic Dissection, Pneumothorax, Musculoskeletal, Esophageal Spasm GERD, Cholecystitis, Pancreatitis, Zoster, this is not meant to be an all-inclusive list. EKG interpreted by me (3pts min.). @ -As above X-rays interpreted by me (1pt min.). @ -Chest x-ray does show effusions. CT interpreted by me (1pt min.). @ -CT of the chest does not show pulmonary embolism. There is concern for moderate to large right effusion with nodular appearance U/S interpreted by me (1pt. min.). @ -None done What testing was considered but not performed or refused? (CT, X-rays, U/S, labs)? Why? @ -None What meds were considered but not given or refused? Why? @ -None Did you discuss the management of the patient with other professionals (professionals i.e. , PA, SHIFT NURSE MANAGER, lab, RT, psych nurse, social welfare research worker, chef german, teacher, protective services officer, telephonic case manager)? Give summary @ -Case discussed with practitioner Afshan Stock who will admit for [facility] covering hospital call Was smoking cessation discussed for >3mins.? @ -No Was critical care preformed (if so, how long)? @ -No Were there social determinants of health that impacted care today? How? (Homelessness, low income, unemployed, alcoholism, drug addiction, transportation, low edu. Level, literacy, decrease access to med. care, usp, rehab)? @ -No Was there de-escalation of care discussed even if they declined (Discuss DNR or withdrawal of care, Hospice)? DNR status @ -No What co-morbidities impacted this encounter? (DM, HTN, Smoking, COPD, CAD, Cancer, CVA, ARF, Chemo, Hep., AIDS, mental health diagnosis, sleep apnea, morbid obesity)? @ -None Was patient admitted / discharged? Hospital course, mention meds given and route, prescriptions, significant lab abnormalities, going to OR and other pertinent info. @ -Patient presents with chest discomfort and dyspnea. Effusion noted. Patient will be admitted with cardiac and pulmonary consults. Admission orders written. Undiagnosed new problem with uncertain prognosis? @ -No Drug Therapy requiring intensive monitoring for toxicity (Heparin, Nitro, Insulin, Cardizem)? @ -No Were any procedures done? @ -No Diagnosis/symptom? @ -Chest pain, pleural effusion Acute, or Chronic, or Acute on Chronic? @ -, Acute, acute Uncomplicated (without systemic symptoms) or Complicated (systemic symptoms)? @ -Default Side effects of treatment? @ -No Exacerbation, Progression, or Severe Exacerbation? @ -No Poses a threat to life or bodily function? How? (Chest pain, [place], [place], pneumonia, PE, COPD, DKA, ARF, appy, cholecystitis, CVA, Diverticulitis, Homicidal, Suicidal, threat to staff... and all critical care pts) @ -Threat to pulmonary and cardiac function - Lab Data Result diagrams: 06/24/24 15:49 06/24/24 15:49 Lab Results 06/24/24 06/24/24 06/24/24 Range/Units 15:49 15:49 15:49 WBC 10.1 (3.8-10.6) k/uL RBC 5.35 (4.30-5.90) m/uL Hgb 16.7 (13.0-17.5) gm/dL Hct 49.4 (39.0-53.0) % MCV 92.3 (80.0-100.0) fL MCH 31.3 (25.0-35.0) pg MCHC 33.8 (31.0-37.0) g/dL RDW 13.2 (11.5-15.5) % Plt Count 264 (150-450) k/uL MPV 8.3 Neutrophils % 71 % Lymphocytes % 14 % Monocytes % 8 % Eosinophils % 5 % Basophils % 1 % Neutrophils # 7.2 (1.3-7.7) k/uL Lymphocytes # 1.4 (1.0-4.8) k/uL Monocytes # 0.8 (0-1.0) k/uL Eosinophils # 0.5 (0-0.7) k/uL Basophils # 0.1 (0-0.2) k/uL PT 12.7 H (10.0-12.5) sec INR 1.2 H (<1.2) APTT 29.6 (22.0-30.0) sec D-Dimer 3.37 H (<0.60) mg/L FEU Sodium 138 (137-145) mmol/L Potassium 4.5 (3.5-5.1) mmol/L Chloride 107 (98-107) mmol/L Carbon Dioxide 23 (22-30) mmol/L Anion Gap 8 mmol/L BUN 20 (9-20) mg/dL Creatinine 1.01 (0.66-1.25) mg/dL Est GFR (CKD-EPI)AfAm 78 (>60 ml/min/1.73 sqM) Est GFR (CKD-EPI)NonAf 67 (>60 ml/min/1.73 sqM) Glucose 96 (74-99) mg/dL Calcium 9.6 (8.4-10.2) mg/dL Magnesium 2.0 (1.6-2.3) mg/dL Total Bilirubin 0.7 (0.2-1.3) mg/dL AST 24 (17-59) U/L ALT 18 (4-49) U/L Alkaline Phosphatase 106 (38-126) U/L Troponin I (0.000-0.034) ng/mL NT-Pro-B Natriuret Pep 562 pg/mL Total Protein 6.8 (6.3-8.2) g/dL Albumin 4.0 (3.5-5.0) g/dL 06/24/24 Range/Units 15:49 WBC (3.8-10.6) k/uL RBC (4.30-5.90) m/uL Hgb (13.0-17.5) gm/dL Hct (39.0-53.0) % MCV (80.0-100.0) fL MCH (25.0-35.0) pg MCHC (31.0-37.0) g/dL RDW (11.5-15.5) % Plt Count (150-450) k/uL MPV Neutrophils % % Lymphocytes % % Monocytes % % Eosinophils % % Basophils % % Neutrophils # (1.3-7.7) k/uL Lymphocytes # (1.0-4.8) k/uL Monocytes # (0-1.0) k/uL Eosinophils # (0-0.7) k/uL Basophils # (0-0.2) k/uL PT (10.0-12.5) sec INR (<1.2) APTT (22.0-30.0) sec D-Dimer (<0.60) mg/L FEU Sodium (137-145) mmol/L Potassium (3.5-5.1) mmol/L Chloride (98-107) mmol/L Carbon Dioxide (22-30) mmol/L Anion Gap mmol/L BUN (9-20) mg/dL Creatinine (0.66-1.25) mg/dL Est GFR (CKD-EPI)AfAm (>60 ml/min/1.73 sqM) Est GFR (CKD-EPI)NonAf (>60 ml/min/1.73 sqM) Glucose (74-99) mg/dL Calcium (8.4-10.2) mg/dL Magnesium (1.6-2.3) mg/dL Total Bilirubin (0.2-1.3) mg/dL AST (17-59) U/L ALT (4-49) U/L Alkaline Phosphatase (38-126) U/L Troponin I <0.012 (0.000-0.034) ng/mL NT-Pro-B Natriuret Pep pg/mL Total Protein (6.3-8.2) g/dL Albumin (3.5-5.0) g/dL Disposition Clinical Impression: Chest pain, Pleural effusion Disposition: ADMITTED IP TO THIS HOSP Is patient prescribed a controlled substance at d/c from ED?: No Referrals: Toi Miranda MD [Primary Care Provider] - 1-2 days Time of Disposition: 19:11
[2024-06-24] MEDS: ASPIRIN 81 MG PO STA (16:00)
--- NOTE | 2024-06-24 16:06 | XR ---
EXAMINATION TYPE: XR chest 2V DATE OF EXAM: 06/24/2024 COMPARISON: NONE HISTORY: Chest pain TECHNIQUE: Frontal and lateral views of the chest are obtained. FINDINGS: There is been prior CABG surgery. Ill-defined focal opacity right lung base possibly a pneumonia. There is no pneumothorax. There is a small left pleural effusion and a arnxa-is-lsgoctoe right pleural effusion. The heart and pulmonary vasculature are otherwise normal. The osseous structures are intact. IMPRESSION: 1. Prior CABG surgery. 2. Bilateral pleural effusions as described above, right greater than left. 3. Small focal opacity right lung base possibly indicating pneumonia. Short-term follow-up to [facility] is recommended. [facility], , 06/24/2024 4:04 PM
[2024-06-24 16:17] LABS: Basophils # (A) 0.1 k/uL (0-0.2); Basophils % (A) 1 %; Eosinophils # (A) 0.5 k/uL (0-0.7); Eosinophils % (A) 5 %; HCT 49.4 % (39.0-53.0); HGB 16.7 gm/dL (13.0-17.5); Lymphocytes # (A) 1.4 k/uL (1.0-4.8); Lymphocytes % (A) 14 %; MCH 31.3 pg (25.0-35.0); MCHC 33.8 g/dL (31.0-37.0); MCV 92.3 fL (80.0-100.0); Mean Platelet Volume 8.3; Monocytes # (A) 0.8 k/uL (0-1.0); Monocytes % (A) 8 %; Neutrophils # (A) 7.2 k/uL (1.3-7.7); Neutrophils % (A) 71 %; Platelet Count 264 k/uL (150-450); RBC 5.35 m/uL (4.30-5.90); RDW 13.2 % (11.5-15.5); WBC 10.1 k/uL (3.8-10.6)
[2024-06-24 16:27] LABS: INR 1.2 (<1.2); Partial Thromboplastin Time 29.6 sec (22.0-30.0); Prothrombin Time 12.7 sec (10.0-12.5)
[2024-06-24 16:33] LABS: ALT 18 U/L (4-49); AST 24 U/L (17-59); African American GFR (CKD) 78 (>60 ml/min/1.73 sqM); Alkaline Phosphatase 106 U/L (38-126); Anion Gap 8 mmol/L; Blood Urea Nitrogen 20 mg/dL (9-20); Calcium 9.6 mg/dL (8.4-10.2); Carbon Dioxide 23 mmol/L (22-30); Chloride 107 mmol/L (98-107); Glucose 96 mg/dL (74-99); Non-African American GFR(CKD) 67 (>60 ml/min/1.73 sqM); Potassium 4.5 mmol/L (3.5-5.1); Sodium 138 mmol/L (137-145); Total Bilirubin 0.7 mg/dL (0.2-1.3); Total Protein 6.8 g/dL (6.3-8.2)
[2024-06-24 16:41] LABS: NT-Pro-B-Type Natriuretic Pept 562 pg/mL
--- NOTE | 2024-06-24 17:20 | CT ---
EXAMINATION TYPE: CT angio chest CT DLP: 461.7 mGycm, Automated exposure control for dose reduction was used. DATE OF EXAM: 06/24/2024 4:56 PM COMPARISON: Chest radiograph from same day. CLINICAL INDICATION: Male, 84 years old with history of cp, dyspnea; CP and elevated d-dimer TECHNIQUE/CONTRAST: CTA scan of the thorax is performed with IV Contrast, patient injected with 85ml mL of Isovue 370, TN P images are created and reviewed these are created on a separate workstation.. FINDINGS: Pulmonary Artery: There is no evidence for a filling defect within the pulmonary vasculature to sugge st acute pulmonary embolism. The pulmonary artery is of normal size. Lungs/Pleura: Moderate to large right pleural effusion and trace left pleural effusion. Calcification s are present along the left pleura. Loculated nodular pleural effusion along the right. 10 mm subsol id pulmonary nodule in the left upper lobe series 411 image 35. Mild paraseptal emphysema changes not ed. Airway: Large airways are patent. Coronary artery atherosclerosis. Heart: Heart is within normal limits for size. Vasculature: No evidence of aortic aneurysm. Mediastinum: No gross evidence of adenopathy. Musculoskeletal: No acute osseous abnormalities, sternotomy wires are present. Multilevel degeneratio n changes Soft Tissues/lymph nodes: Unremarkable. Lower neck: No significant findings. Upper Abdomen: Left hepatic lobe probable simple cyst. The gallbladder surgically absent. Scattered c olonic diverticula. IMPRESSION: 1. No evidence of pulmonary embolism. 2. Moderate to large right pleural effusion which has nodular appearance possibly loculated pleural e ffusion versus other. Correlate with history of malignancy given left-sided pleural calcification cor relate with history of asbestos exposure. 3. Subcentimeter left upper lung pulmonary nodule. Low-dose lung cancer screening yearly recommended. 4. Mild emphysema changes. Follow up recommendations for incidental pulmonary nodules, if there are any, are per [employer] [employer] or [employer]. https://radiopaedia.org/articles/tdnaizanzk-gnwllca-iqewjueai-kbehht-[email or web address]?lang=us [facility], , 06/24/2024 5:18 PM
[2024-06-24 18:07] VITALS: BP 149/81; PULSE 57
[2024-06-24] MEDS ORDERED: NITROGLYCERIN SL TABS 0.4 MG TAB SUBLINGUAL PRN (19:11)
[2024-06-25] MEDS ORDERED: NITROGLYCERIN OINT 1 INCH/GM PACKET TOPICAL SCH
[2024-06-25] MEDS ORDERED: ASPIRIN 325 MG TAB PO SCH (09:00)
== END 2024-06-24 19:26 | disposition left against medical advice (07) ==
LOC: EC 15:20 → 6NMEDSUR 19:13
PROVIDERS: ADMIT Hospitalist; ATTEND Hospitalist
DX: R07.89 Other chest pain (principal); J90 Pleural effusion, not elsewhere classified; I10 Essential (primary) hypertension; E78.5 Hyperlipidemia, unspecified; I48.91 Unspecified atrial fibrillation; I25.2 Old myocardial infarction; Z95.5 Presence of coronary angioplasty implant and graft; Z79.01 Long term (current) use of anticoagulants; Z79.899 Other long term (current) drug therapy; Z53.9 Procedure and treatment not carried out, unspecified reason
CPT/HCPCS: 99285; 36415; 93005; 85379; 83880; 80053; 83735; 84484; 85025; 85610; 85730; 71046; 71275; G0378; Q9967

== ENCOUNTER 2024-11-29 07:13 | Day surgery (SDC) | payer MEDICARE ==
[~2024-11-29 07:13] MED LIST changes: -ASPIRIN 325 MG TAB PO ONE; -ATORVASTATIN 80 MG TAB PO ONE; -SODIUM CHLORIDE 0.9% 1,000 ML in EMPTY BAG 1 BAG IV ONE
[2024-11-29] MEDS: ASPIRIN 325 MG TAB PO ONE (07:41)
[2024-11-29] MEDS: ATORVASTATIN 80 MG TAB PO STA (07:41)
[2024-11-29] MEDS: SODIUM CHLORIDE 0.9% 1,000 ML in EMPTY BAG 1 BAG IV SCH ×2 (07:41→11:55)
[2024-11-29] MEDS: IV FLUID CONTINUATION 1,000 ML IV ONE (08:00)
[2024-11-29 08:10] LABS: Basophils # (A) 0.1 k/uL (0-0.2); Basophils % (A) 1 %; Eosinophils # (A) 0.2 k/uL (0-0.7); Eosinophils % (A) 3 %; HCT 50.7 % (39.0-53.0); HGB 15.5 gm/dL (13.0-17.5); Hypochromasia Slight; Lymphocytes # (A) 1.4 k/uL (1.0-4.8); Lymphocytes % (A) 18 %; MCHC 30.7 g/dL (31.0-37.0); MCV 94.4 fL (80.0-100.0); Mean Platelet Volume 8.1; Monocytes # (A) 0.6 k/uL (0-1.0); Monocytes % (A) 7 %; Neutrophils # (A) 5.7 k/uL (1.3-7.7); Neutrophils % (A) 71 %; Platelet Count 232 k/uL (150-450); RBC 5.36 m/uL (4.30-5.90); RDW 13.9 % (11.5-15.5); WBC 8.1 k/uL (3.8-10.6)
[2024-11-29 08:23] LABS: African American GFR (CKD) 77 (>60 ml/min/1.73 sqM); Anion Gap 7 mmol/L; Blood Urea Nitrogen 16 mg/dL (9-20); Calcium 9.2 mg/dL (8.4-10.2); Carbon Dioxide 32 mmol/L (22-30); Chloride 99 mmol/L (98-107); Glucose 106 mg/dL (74-99); Non-African American GFR(CKD) 66 (>60 ml/min/1.73 sqM); Potassium 3.9 mmol/L (3.5-5.1); Sodium 138 mmol/L (137-145)
[2024-11-29] MEDS: HEPARIN SODIUM,PORCINE 10,000 UNIT in SODIUM CHLORIDE 0.9% 1,000 ML IRRIGATION PRN (09:10)
[2024-11-29] MEDS: HEPARIN SODIUM,PORCINE (1 ML) 2,500 UNIT in SODIUM CHLORIDE 0.9% 250 ML IRRIGATION PRN (09:11)
[2024-11-29] MEDS: fentaNYL (PF) 50 MCG/ML 2 ML AMP IVP ONE (09:13)
[2024-11-29] MEDS: MIDAZOLAM 2 MG/2 ML VIAL IVP ONE (09:13)
[2024-11-29] MEDS: LIDOCAINE 1% INJ 10MG/ML (20 ML MDV) SQ ONE (09:16)
[2024-11-29] MEDS: IOPAMIDOL-370 100ML BTL INJ ONE ×2 (09:38→11:06)
[2024-11-29] MEDS: HEPARIN SODIUM 1,000 UN/ML (10ML VL) IVP ONE (10:32)
--- NOTE | 2024-11-29 10:35 | CC ---
CARDIAC CATHETERIZATION REPORT INDICATION: Known coronary artery disease, status post bypass surgery with LEUNG to LAD, venous graft to diagonal OM, status post angioplasty with stent placement of [place] right coronary artery in 2019, who presented to me with progressively worsening shortness of breath. It was an anginal equivalent and hence the patient was advised to undergo cardiac catheterization for further evaluation. He had an echocardiogram at [facility] that showed normal LV systolic function. He had a CT scan of the chest that was negative for pulmonary embolism. The patient understands risks, benefits, and alternatives and understood and accepted. PROCEDURE NOTE: After obtaining informed consent, left heart catheterization and coronary angiogram were performed via the right femoral artery using standard Sarah catheter. The patient tolerated the procedure well without obvious immediate complications. The patient received conscious sedation. Total sedation time was 30 minutes. FINDINGS: 1. Hemodynamics: Left ventricular end-diastolic pressure is 16 mm. There is no significant gradient across the aortic valve. 2. Left ventriculogram: Left ventriculogram is not performed. 3. Angiographic data: Under this [place] right coronary artery is a large dominant vessel and there is mild to moderate nonobstructive disease involving the proximal RCA. The stent itself appears patent. The left main coronary artery appears calcified, is free of stenosis. Divides into left anterior descending coronary artery and circumflex coronary artery. Circumflex coronary artery shows a focal 90% stenosis proximally. LAD appears occluded proximally. There is competitive flow into the [place] circumflex coronary artery. 4. Selective injection of the bypass grafts: a. LEUNG to LAD is patent. b. Venous graft to diagonal is occluded. c.Venous graft to circumflex coronary artery is patent. However, the OM branch shows a focal 95% stenosis and severe three-vessel coronary artery disease as described above with patent stent within the [place] right coronary artery, patent LEUNG to LAD, occluded venous graft to diagonal, patent venous graft to OM with a significant stenosis involving the [place] OM. PLAN: Angiographic data was reviewed by Dr. Gregory, the on-call drophammer operator who will attempt angioplasty of the [place] circumflex coronary artery that is enlarged. I discussed these issues with the patient. He understands in agreement with the plans. MMODL / IJN: [id number] /
[2024-11-29] MEDS: CLOPIDOGREL 75 MG TAB PO ONE (10:37)
[2024-11-29] MEDS ORDERED: RX INFO: IV CONTRAST WAS GIVEN 1 EACH MISC MISCELLANE PRN (11:58)
[2024-11-29] MEDS ORDERED: MAG HYDROX/AL HYDROX/SIMETH 30 ML CUP PO PRN (12:05)
[2024-11-29] MEDS ORDERED: ZOLPIDEM 5 MG TAB PO PRN (12:05)
[2024-11-29] MEDS ORDERED: ATROPINE SULFATE 0.1 MG/ML 10ML SYRINGE IV PRN (12:05)
[2024-11-29] MEDS: ATORVASTATIN 40 MG TAB PO SCH (20:37)
[2024-11-29] MEDS: METOPROLOL SUCCINATE (ER) 25 MG TAB.ER.24H PO SCH (20:39)
--- NOTE | 2024-11-29 22:59 | CC ---
CARDIAC CATHETERIZATION REPORT PROCEDURE: PTCA and stenting of vein graft to the obtuse marginal branch of circumflex. PERFORMED BY: Dr. Alice Gregory. ANESTHESIA: Moderate conscious sedation time was 81 minutes. Patient was administered Versed. Oxygen saturation, hemodynamics, and EKG were monitored closely. CLINICAL INFORMATION: Mr. Dinesh Campbell is an 84-year-old gentleman with a history of CAD, prior bypass surgery in 1994 or so at [facility]. In 2019, I performed stenting of his RCA. This was an orbital atherectomy followed by stenting. At that time, he had a patent vein graft to the diagonal, LEUNG to LAD was patent and vein graft to the obtuse marginal had moderate disease. Because of increasing shortness of breath with the possibility that his anginal equivalence is shortness of breath, he was brought in for cardiac cath by Dr. Gaytan and study revealed that the vein graft to the diagonal was occluded, RCA was widely patent with remarkably good flow, LEUNG to LAD was opened, but the vein graft to the obtuse marginal had a 95% stenosis representing significant progression of disease. He was advised intervention and I performed procedure in the same setting. PROCEDURE NOTE: The existing 6-Palauan introducer in the right femoral artery was used to perform procedure. I used initially KRS 4.0 guide catheter, but I had difficulty with guide support even with a GuideLiner. I then switched over to a hockey-stick guide catheter. With a combination of hockey-stick guide catheter, a GuideLiner that was kept almost all the way into the vein graft and a whisper wire. With this combination, I advanced the wire distally and pre-dilated the lesion with a 2.5 caliber, 12 mm NC Trek balloon and then deployed a 2.0 caliber Durant stent. Following this, there was a distal flow was lost. I used a 2.0 caliber Mini Trek balloon. With this, I dilated the entire distal segment. Excellent angiographic result was achieved. The stent appears to be fully expanded angiographically with a very good flow. Entire vessel opacified. The patient therefore has a 2.0 Jay that was deployed at 15 atmospheres and also had a distal vessel dilated with a 2.0 balloon. The patient received 600 mg of Plavix and he will be on aspirin and Plavix without interruption for 1 year. He also received intravenous heparin. ACT was 313 and subsequently at the end of the procedure, it was 228. Excellent angiographic result without complication was achieved. Details were discussed with the patient as well as his daughter. I expect he will be discharged tomorrow if he remains stable. HYUN / FRANTZ: [id number] /
[2024-11-30 02:45] VITALS: RESP 16
[2024-11-30] MEDS: CLOPIDOGREL 75 MG TAB PO SCH (08:43)
[2024-11-30] MEDS: lisinopriL 20 MG TAB PO SCH (08:43)
[2024-11-30] MEDS: ASPIRIN 81 MG PO SCH (08:43)
[2024-11-30] MEDS: APIXABAN 2.5 MG TABLET PO SCH (08:43)
[2024-11-30 09:31] LABS: BUN/Creat Ratio 14.73 Ratio (12.00-20.00); Blood Urea Nitrogen 16.2 mg/dL (9.0-27.0); Calcium 8.5 mg/dL (8.7-10.3); Carbon Dioxide 29.1 mmol/L (21.6-31.8); Chloride 103 mmol/L (96-109); Glucose 91 mg/dL (70-110); Potassium 4.7 mmol/L (3.5-5.5); Sodium 139 mmol/L (135-145)
--- NOTE | 2024-11-30 09:55 | P.DS ---
Providers Attending physician: Julius Gaytan Consults: 11/29/24 12:05 Consult Physician Routine Consulting Provider: [facility] Consult Reason/Comments: Post Interventional Patient Do you want consulting provider notified?: Already Contacted Primary care physician: Toi Miranda [facility] Course: This is an 84-year-old male who underwent cardiac catheterization on 11/29/[address] Gaytan. Patient was found to have patent LEUNG to LAD, VG to diagonal occluded, venous graft to circumflex patent. However OM branch shows 95% focal stenosis and severe three-vessel coronary artery disease with patent stent wit hin the [place] right coronary artery, patent LEUNG to LAD, occluded VG to diagonal, patent VG to OM with significant stenosis involving the [place] OM. Patient underwent stenting of [place] circumflex by Dr. Gregory. Patient examined this morning at the bedside. Patient denies any chest pain or pressure. He denies any shortness of breath. Vital signs are stable. The patient was deemed stable for discharge home today on triple therapy. Please see EMR for further hospital course details. Discharge diagnosis Coronary artery disease, status post PCI of [place] circumflex Nurse practitioner note has been reviewed by physician. Signing provider agrees with the documented findings, assessment, and plan of care documented by WALL MIRROR DEPARTMENT SUPERVISOR as a scribe. Plan - Discharge Summary Discharge Rx Participant: No New Discharge Prescriptions: New Clopidogrel [Plavix] 75 mg PO DAILY #90 tab Aspirin 81 mg PO DAILY #30 tab Apixaban [Eliquis] 2.5 mg PO BID #60 tab Continue Metoprolol Succinate (ER) [Toprol XL] 25 mg PO BID Atorvastatin Calcium [Lipitor] 40 mg PO HS Nitroglycerin Sl Tabs [Nitrostat] 0.4 mg SUBLINGUAL Q5M PRN #25 tab PRN Reason: Chest Pain lisinopriL [Zestril] 20 mg PO DAILY Discontinued Apixaban [Eliquis] 5 mg PO BID Discharge Medication List Atorvastatin Calcium [Lipitor] 40 mg PO HS 11/19/19 [History] Metoprolol Succinate (ER) [Toprol XL] 25 mg PO BID 11/19/19 [History] Nitroglycerin Sl Tabs [Nitrostat] 0.4 mg SUBLINGUAL Q5M PRN #25 tab 11/27/19 [Rx] lisinopriL [Zestril] 20 mg PO DAILY 06/24/24 [History] Apixaban [Eliquis] 2.5 mg PO BID #60 tab 11/29/24 [Rx] Aspirin 81 mg PO DAILY #30 tab 11/29/24 [Rx] Clopidogrel [Plavix] 75 mg PO DAILY #90 tab 11/29/24 [Rx] Follow up Appointment(s)/Referral(s): Julius Gaytan MD [STAFF PHYSICIAN] - 12/06/24 9:30 am Activity/Diet/Wound Care/Special Instructions: Continue aspirin, plavix, and Eliquis for 1 month After one month, discontinue aspirin. Continue plavix and eliquis. Return to previous Eliquis ddose of 5mg twice a day at that time
[2024-11-30 10:26] LABS: Basophils # (A) 0.05 X 10*3/uL (0.00-0.10); Basophils % (A) 0.7 %; Eosinophils # (A) 0.25 X 10*3/uL (0.04-0.35); Eosinophils % (A) 3.5 %; HCT 40.6 % (39.6-50.0); HGB 13.5 g/dL (13.0-17.0); Lymphocytes # (A) 1.37 X 10*3/uL (0.90-5.00); MCH 29.7 pg (27.0-32.0); MCHC 33.3 g/dL (32.0-37.0); MCV 89.2 FL (80.0-97.0); Mean Platelet Volume 11.1 FL (9.5-12.2); Monocytes # (A) 0.72 X 10*3/uL (0.20-1.00); NRBC Per 100 WBC 0 X 10*3/uL (0.00-0.01); Neutrophils # (A) 4.79 X 10*3/uL (1.80-7.70); Neutrophils % (A) 66.4 %; Platelet Count 178 X 10*3/uL (140-440); RBC 4.55 X 10*6/uL (4.40-5.60); RDW 14.5 % (11.5-14.5); WBC 7.21 X 10*3/uL (4.50-10.00)
[2024-11-30 10:34] VITALS: BP 143/69; PULSE 52; TEMP 97.8
== END 2024-11-30 11:04 | disposition home or self-care (01) ==
LOC: CATHCVL 07:13 → 6NMEDSUR 13:00 → CATHCVL 11-30 11:04
PROVIDERS: ATTEND Internal Medicine Cardiovascular Disease
DX: I25.718 Atherosclerosis of autologous vein coronary artery bypass graft(s) with other forms of angina pectoris (principal); I25.84 Coronary atherosclerosis due to calcified coronary lesion; Z95.5 Presence of coronary angioplasty implant and graft; I10 Essential (primary) hypertension; E78.2 Mixed hyperlipidemia; I49.9 Cardiac arrhythmia, unspecified; Z79.01 Long term (current) use of anticoagulants; Z79.899 Other long term (current) drug therapy; Z87.891 Personal history of nicotine dependence
CPT/HCPCS: 93459; 80048 ×2; 85025 ×2; C9604; C1760; C1769 ×5; C1887 ×4; C1894 ×2; C1725 ×3; C1874; J2250; J1644 ×3; J2003; J3010; Q9967